=== PATIENT | female | born 1945 | race Caucasian/White ===

== ENCOUNTER 2021-09-22 19:29 | Inpatient (IN) | payer BC ==
[~2021-09-22] VITALS: Ht 142.2 cm; Wt 96.6 kg
[2021-09-22] MEDS: ENOXAPARIN 100 MG/ML SYR SUBQ SCH (01:20)
[2021-09-22 19:45] VITALS: BP 215/84
[2021-09-22] MEDS ORDERED: NACL 0.9% 1,000 ML IV ONE (19:45)
[2021-09-22] MEDS ORDERED: DILTIAZEM 25 MG/5 ML VIAL IVP ONE ×2 (19:45→20:50)
--- NOTE | 2021-09-22 19:45 | NUR ---
76 Y/O FEMALE BIBA, C/O CP X1HR PRIOR TO EMS ARRIVAL. PATIENT PRESENTS TO ED WITH SOB, CP, AND PAIN IN HER LEFT ARM. PT STATES SHE WENT FOR A WALK AND WHEN SHE CAME HOME SHE STARTED TO FEEL LIKE HER "HEART WAS POUNDING OUT OF HER CHEST." DENIES N/V/D; SKIN IS PINK/WARM/DRY; AAOX4 WITH EVEN AND STEADY GAIT; HR IRREGULAR; PT DENIES ANY FEVER OR COUGH AT THIS TIME; PATIENT STATES PAIN OF 9/10 BURNING PAIN AT THIS TIME; PATIENT POSITIONED FOR COMFORT; HOB ELEVATED; BEDRAILS UP X2; BED DOWN. ER MD MADE AWARE OF PT STATUS. EMS STATES DURING 2 MINUTE TRANSPORT PT HAD AFIB WITH MOMENTS OF WIDE QRS COMPLEXES, TACHYCARDIC, AND SYSTOLIC BP OVER 200. HX: SPINAL STYENOSIS, HTN ALL: LISINOPRIL AND "THREE OTHER HTN MEDICATIONS" MEDS: LOSARTAN, NORCO
--- NOTE | 2021-09-22 19:45 | NUR ---
PT TAKEN TO BED 10 VIA EMS DARRYL
[2021-09-22 20:47] LABS: ALBUMIN 3.2 g/dL (3.4-5.0); ANION GAP 8.2 (8-16); ASPARTATE AMINOTRANSFERASE 22 U/L (15-37); CARBON DIOXIDE 27.6 mmol/L (21-32); CHLORIDE 103 mmol/L (98-107); CREATININE 0.9 mg/dL (0.6-1.3); GLUCOSE 143 mg/dL (74-106); SODIUM SERUM 136 mmol/L (136-145); TOTAL BILIRUBIN 0.2 mg/dL (0.0-1.0); UREA NITROGEN, BLOOD 17 mg/dL (7-18)
[2021-09-22 20:48] LABS: POTASSIUM 2.8 mmol/L (3.5-5.1)
[2021-09-22 20:56] LABS: PHOSPHORUS 3.9 mg/dL (2.5-4.9); THYROID STIMULATING HORMONE 2.46 uIU/mL (0.34-3.74)
[2021-09-22] MEDS ORDERED: POTASSIUM CHLORIDE 10 MEQ TABER PO ONE ×2 (21:00→22:40)
[2021-09-22] MEDS ORDERED: ASPIRIN 325 MG TAB PO ONE (21:00)
[2021-09-22] MEDS ORDERED: DILTIAZEM 30 MG TAB PO ONE (21:05)
[2021-09-22] MEDS ORDERED: MORPHINE SULFATE 4 MG/ML SYR IVP ONE (21:05)
[2021-09-22] MEDS ORDERED: CALCIUM GLUC 1 GM/50 mL NS BAG 50 ML IV ONE (21:05)
[2021-09-22] MEDS ORDERED: HYDR-5191 PO (21:44)
[2021-09-22] MEDS ORDERED: ALBU0.0912 INH (21:44)
[2021-09-22] MEDS ORDERED: ASPI-1822 PO (21:44)
--- NOTE | 2021-09-22 21:49 | NUR ---
nelson/ebonie swabbed and walked to lab
[2021-09-22] MEDS ORDERED: FUROSEMIDE 40 MG/4 ML VIAL IVP ONE (21:50)
--- NOTE | 2021-09-22 21:50 | NUR ---
PT STATES THE "MEDICATION WE GAVE HER IS HELPING." BP AND PULSE HAVE DECREASED. PT IS UNCOMFORTABLE DUE TO HX OF SPINALSTENOSIS. PILLOWS AND BLANKETS USED WITH MINOR IMPROVEMENT.
[2021-09-22] MEDS ORDERED: DILTIAZEM 125 MG/25 ML VIAL IV ONE (22:14)
[2021-09-22] MEDS: DILTIAZEM 125 MG in DEXTROSE 5% 100 ML IV SCH (22:36)
[2021-09-22] MEDS ORDERED: ONDANSETRON 4 MG/2 ML VIAL IVP PRN (22:40)
[2021-09-22] MEDS ORDERED: ACETAMINOPHEN 325 MG TAB PO PRN (22:40)
--- NOTE | 2021-09-22 23:00 | NUR ---
PT STATES SHE IS INCONTINENT AND USES A DIAPER. SHE WAS CHANGED AND PURWICK PLACED.
--- NOTE | 2021-09-22 23:16 | NUR ---
REPLACED PT LINENES AND TRIED TO REPOSITION PT FOR COMFORT.
--- NOTE | 2021-09-22 23:30 | NUR ---
URINE COLLECTED AND WALKED TO LAB
--- NOTE | 2021-09-22 23:51 | NUR ---
Patient will be admitted to care of DR ETIENNE. Admited to ICU. Will go to room 2. Belongings list completed. Report to NORMAN NEVAREZ.
[2021-09-23] VITALS (24 sets, daily range): BP systolic 64–177; BP diastolic 28–101
--- NOTE | 2021-09-23 | NUR ---
PT TRANSFERRED TO ICU BED 2 FROM ED. RECEIVED BEDSIDE REPORT FROM ED NURSE, ASSUMED CARE. PT IN NO APPARENT ACUTE DISTRESS, AOX4 TALKING AND ANSWERING TO ALL MEDICAL HISTORY QUESTIONS. BREATHING AT RA O2 SAT 96%, EVEN UNLABORED BREATHING, CLEAR LUNG SOUNDS UPON AUSCULTATION. 20 G IN RIGHT HAND INFUSING CARDIZEM 15 MG/HR. PUREWICK IN PLACE. SKIN INTACT. PT EDUCATED ON HOW TO USE CALL LIGHT AND TV. ALL SAFETY MEASURES IN PLACE, WILL CONTINUE TO CLOSELY MONITOR AND FOLLOW POC.
[2021-09-23 00:08] LABS: BARBITURATE, URINE NEGATIVE ng/ml (NEG <=200); BENZODIAZEPINE, URINE NEGATIVE ng/mL (NEG <=200); CANNABINOID, URINE NEGATIVE ng/mL (NEG <=50); COCAINE, URINE NEGATIVE ng/mL (NEG <=300); OPIATE, URINE POSITIVE ng/mL (NEG <=2000); PHENCYCLIDINE SCREEN,URINE NEGATIVE ng/mL (NEG <=25)
--- NOTE | 2021-09-23 00:10 | NUR ---
CALLED DR ETIENNE TO REPORT PT WITH SEVERE BACK PAIN SHE RATES /. NEW ORDER RECEIVED AND CARRIED OUT.
[2021-09-23] MEDS ORDERED: HYDROcodone/APAP 10/325 MG 1 TAB TAB ONE (00:14)
[2021-09-23] MEDS: HYDROcodone/APAP 10/325 MG 1 TAB TAB PO PRN (00:21)
--- NOTE | 2021-09-23 00:30 | NUR ---
CALLED DR. ETIENNE TO REPORT PT WITH LEG CRAMPS AND SEVERE PAIN. NEW ORDERS RECEIVED FOR BACLOFEN AND BOLUS NS. ORDERS CARRIED OUT.
[2021-09-23] MEDS ORDERED: NACL 0.9% 500 ML IV ONE (00:50)
[2021-09-23] MEDS ORDERED: BACLOFEN 10 MG TAB ONE (00:52)
[2021-09-23] MEDS: BACLOFEN 10 MG TAB PO SCH ×3 (01:03→20:44)
[2021-09-23 01:12] LABS: BASOPHILS # (AUTO) 0.1 K/uL (0.00-0.22); BASOPHILS % (AUTO) 0.7 % (0.0-2.0); EOSINOPHILS # (AUTO) 0.2 K/uL (0-0.4); EOSINOPHILS % (AUTO) 1.3 % (0.0-4.0); HEMATOCRIT 34.7 % (36-48); HEMOGLOBIN 11.2 g/dL (12.0-16.0); LYMPHOCYTES # (AUTO) 3.8 K/uL (2.5-16.5); MEAN CORPUSCULAR HEMOGLOBIN 28 pg (27-31); MEAN CORPUSCULAR HGB CONC 32 g/dL (33-37); MEAN CORPUSCULAR VOLUME 87.8 fL (80-94); MONOCYTES # (AUTO) 0.7 K/uL (0.8-1.0); MONOCYTES % (AUTO) 4.5 % (1.7-9.3); NEUTROPHILS # (AUTO) 10.5 K/uL (1.8-7.7); NEUTROPHILS % (AUTO) 68.5 % (42.2-75.2); PLATELET COUNT (AUTO) 305 K/uL (140-450); RED BLOOD CELL COUNT(AUTO) 3.95 MIL/uL (4.20-5.40); RED CELL DISTRIBUTION WIDTH 14.1 % (11.6-13.7); WHITE BLOOD COUNT (AUTO) 15.3 K/uL (4.8-10.8)
[2021-09-23] MEDS ORDERED: MORPHINE SULFATE 2 MG/ML SYR ONE (03:23)
[2021-09-23] MEDS: MORPHINE SULFATE 2 MG/ML SYR IVP PRN ×7 (03:30→23:43)
[2021-09-23 05:16] LABS: ALBUMIN 3.2 g/dL (3.4-5.0); ANION GAP 9.9 (8-16); ASPARTATE AMINOTRANSFERASE 39 U/L (15-37); CARBON DIOXIDE 28.7 mmol/L (21-32); CHLORIDE 104 mmol/L (98-107); CREATININE 0.7 mg/dL (0.6-1.3); GLUCOSE 114 mg/dL (74-106); MAGNESIUM 1.9 mg/dL (1.8-2.4); PHOSPHORUS 4.2 mg/dL (2.5-4.9); POTASSIUM 3.6 mmol/L (3.5-5.1); SODIUM SERUM 139 mmol/L (136-145); TOTAL BILIRUBIN 0.3 mg/dL (0.0-1.0); UREA NITROGEN, BLOOD 14 mg/dL (7-18)
[2021-09-23 05:39] LABS: BASOPHILS # (AUTO) 0.1 K/uL (0.00-0.22); BASOPHILS % (AUTO) 0.8 % (0.0-2.0); EOSINOPHILS # (AUTO) 0.1 K/uL (0-0.4); EOSINOPHILS % (AUTO) 1.3 % (0.0-4.0); HEMATOCRIT 33.5 % (36-48); LYMPHOCYTES # (AUTO) 2.5 K/uL (2.5-16.5); LYMPHOCYTES % (AUTO) 23.8 % (20.5-51.1); MEAN CORPUSCULAR HEMOGLOBIN 29 pg (27-31); MEAN CORPUSCULAR HGB CONC 33 g/dL (33-37); MEAN CORPUSCULAR VOLUME 87.4 fL (80-94); MONOCYTES # (AUTO) 0.6 K/uL (0.8-1.0); MONOCYTES % (AUTO) 5.9 % (1.7-9.3); NEUTROPHILS # (AUTO) 7.1 K/uL (1.8-7.7); NEUTROPHILS % (AUTO) 68.2 % (42.2-75.2); PLATELET COUNT (AUTO) 303 K/uL (140-450); RED BLOOD CELL COUNT(AUTO) 3.83 MIL/uL (4.20-5.40); RED CELL DISTRIBUTION WIDTH 13.9 % (11.6-13.7); WHITE BLOOD COUNT (AUTO) 10.4 K/uL (4.8-10.8)
--- NOTE | 2021-09-23 07:15 | NUR ---
RECEIVED BEDSIDE REPORT FROM ROQUE GARCIA RN FOR CONTINUITY OF CARE. PT LYING SUPINE IN THE BED, AAOX4, ABLE TO MAKE NEEDS KNOWN. ON ROOM AIR SPO2 97%. AFIB ON THE MONITOR. HR 84, BP 138/70. BOWEL SOUNDS ACTIVE. CONTINENT OF BOWEL. INCONTINENT OF BLADDER, PURE WICK TO CONTINUOUS SUCTION. PT LETHARGIC. SKIN INTACT. 22G IV TO R HAND. PT COMPLAINS OF PAIN, BUT REFUSES PRN NORCO AT THIS TIME, WILL REASSESS. SAFETY PRECAUTIONS MET. STANDARD PRECAUTIONS IN PLACE. INITIAL ASSESSMENT COMPLETE, WILL CONTINUE TO CLOSELY MONITOR.
--- NOTE | 2021-09-23 08:35 | NUR ---
DOUBLER HELPER CALLED TO BEDSIDE PATIENT PRESENTING WITH INCREASED SOB LABORED WITH RR AT 24 BPM SATURATION 94% ON ROOM AIR BREATH SOUNDS DIMINISHED LEFT SIDE DIFFUSED RALES RIGHT SIDE DOUBLER HELPER RECOMMENDATION: [facility]N THERAPY DUONEB Q4PRN FOR SOB/WHEEZE; SATURATION GREATER OR EQUAL TO 92% Addendum: 09/23/21 at 0930 by Romulo Yarbrough RT REVIEWED CXR; LABS (CHEMISTRY/HEMATOLOGY)
[2021-09-23] MEDS ORDERED: ALBUTEROL SULFATE/IPRATROPIU 3 ML SOL IH PRN (08:40)
--- NOTE | 2021-09-23 08:45 | NUR ---
PT SON, VALENTIN, CALLED. PT SPOKE WITH SON WITH UNIT PT PHONE. SPOKE WITH VALENTIN, UPDATED REGARDING PT CONDITION, ALL QUESTIONS ANSWERED AT THIS TIME. HE REQUESTED TO SPEAK W WHEN THEY ARRIVE.
--- NOTE | 2021-09-23 08:46 | NUR ---
PLACED ON HUMIDIFIED SUPPLEMENTAL OXYGEN AT 2 LPM VIA NC FOR CARDIAC SUPPORT; MAINTAIN OXYGEN SATURATION EQUAL/GREATER THAN 92% JOI/RN NOTIFIED
--- NOTE | 2021-09-23 08:55 | NUR ---
PT DAUGHTER, CALLUM CALLED. PT RELEASED INFORMATION TO CALLUM. UPDATED REGARDING PT CONDITION, ALL QUESTIONS ANSWERED AT THIS TIME.
[2021-09-23] MEDS ORDERED: LOVENOX 1MG/KG Q12H SUBQ SCH (09:00)
--- NOTE | 2021-09-23 09:00 | NUR ---
PT SON, NAVEED CALLED. UPDATED REGARDING PT CONDITION, ALL QUESTIONS ANSWERED AT THIS TIME.
--- NOTE | 2021-09-23 09:15 | NUR ---
ECHOCARDIOGRAM AT BEDSIDE
[2021-09-23] MEDS: ASPIRIN 81 MG TAB.CHEW PO SCH (10:36)
--- NOTE | 2021-09-23 11:00 | NUR ---
PT SON AT BEDSIDE.
--- NOTE | 2021-09-23 11:20 | NUR ---
SEEN AND EXAMINED BY DR ETIENNE.
--- NOTE | 2021-09-23 11:32 | NUR ---
PT TALKS WITH PT SON, NAVEED AT BEDSIDE, AND VALENTIN ON THE PHONE.
[2021-09-23] MEDS ORDERED: DILTIAZEM 125 MG/25 ML VIAL IV ONE (16:22)
[2021-09-23] MEDS: DILTIAZEM 125 MG in DEXTROSE 5% 100 ML IV SCH (16:41)
[2021-09-23] MEDS: FUROSEMIDE 40 MG/4 ML VIAL IVP SCH (16:46)
--- NOTE | 2021-09-23 19:15 | NUR ---
ENDORSED BEDSIDE REPORT TO ROQUE GARCIA RN FOR CONTINUITY OF CARE
--- NOTE | 2021-09-23 19:30 | NUR ---
RECEIVED BEDSIDE REPORT FROM DAY SHIFT NURSE, ASSUMED CARE. PT IN NO APPARENT ACUTE DISTRESS, AOX4 TALKING AND ANSWERING TO ALL QUESTIONS. BREATHING AT RA O2 SAT 92%, EVEN UNLABORED BREATHING, CLEAR LUNG SOUNDS UPON AUSCULTATION. 20 G IN RIGHT HAND INFUSING CARDIZEM 5 MG/HR. PUREWICK IN PLACE. SKIN INTACT. ALL SAFETY MEASURES IN PLACE, WILL CONTINUE TO CLOSELY MONITOR AND FOLLOW POC.
[2021-09-23] MEDS ORDERED: METOPROLOL 5 MG/5 ML VIAL IVP PRN (22:30)
--- NOTE | 2021-09-23 22:33 | NUR ---
CALLED RUBBER MIXER DR. PINTO TO REPORT PT CONVERTED FROM A-FIB TO SR AT 2129. NEW ORDERS RECEIVED TO STOP CARDIZEM DRIP AND SWITCH TO SCHEDULED PO MEDICATIONS. ORDERS CARRIED OUT.
[2021-09-23] MEDS: ENOXAPARIN 100 MG/ML SYR SUBQ SCH (23:46)
[2021-09-24] VITALS (17 sets, daily range): BP systolic 76–186; BP diastolic 49–81
--- NOTE | 2021-09-24 02:19 | NUR ---
PT IN BED RESTING COMFORTABLY Addendum: 09/24/21 at 0309 by Ирина Ponce RN PT SLEEPING WITH EYES CLOSED COMFORTABLY IN BED IN NO APPARENT ACUTE DISTRESS. BREATHING AT RA O2 SAT 96%. ALL SAFETY MEASURES IN PLACE, WILL CONTINUE TO CLOSELY MONITOR AND FOLLOW POC.
[2021-09-24] MEDS: MORPHINE SULFATE 2 MG/ML SYR IVP PRN ×5 (02:43→20:06)
--- NOTE | 2021-09-24 03:00 | NUR ---
MORNING AND ORAL CARE PROVIDED, PT TOLERATED WELL. PT BREATHING AT RA O2 SAT 93%. MORPHINE ADMINISTERED FOR BACK PAIN SHE RATES 10/10. ALL SAFETY MEASURES IN PLACE, WILL CONTINUE TO CLOSELY MONITOR AND FOLLOW POC.
--- NOTE | 2021-09-24 06:00 | NUR ---
PT SLEEPING COMFORTABLY IN BED WITH EYES CLOSED. BREATHING AT RA O2 SAT 98%. ALL SAFETY MEASURES IN PLACE. WILL CONTINUE TO CLOSELY MONITOR AND FOLLOW POC.
[2021-09-24 06:02] LABS: BASOPHILS # (AUTO) 0.1 K/uL (0.00-0.22); BASOPHILS % (AUTO) 0.8 % (0.0-2.0); EOSINOPHILS # (AUTO) 0.2 K/uL (0-0.4); EOSINOPHILS % (AUTO) 1.9 % (0.0-4.0); HEMATOCRIT 34.6 % (36-48); HEMOGLOBIN 11.2 g/dL (12.0-16.0); LYMPHOCYTES # (AUTO) 2.5 K/uL (2.5-16.5); LYMPHOCYTES % (AUTO) 19.9 % (20.5-51.1); MEAN CORPUSCULAR HEMOGLOBIN 28 pg (27-31); MEAN CORPUSCULAR HGB CONC 33 g/dL (33-37); MEAN CORPUSCULAR VOLUME 87.1 fL (80-94); MONOCYTES # (AUTO) 0.6 K/uL (0.8-1.0); MONOCYTES % (AUTO) 4.8 % (1.7-9.3); NEUTROPHILS # (AUTO) 9.1 K/uL (1.8-7.7); NEUTROPHILS % (AUTO) 72.6 % (42.2-75.2); PLATELET COUNT (AUTO) 311 K/uL (140-450); RED BLOOD CELL COUNT(AUTO) 3.97 MIL/uL (4.20-5.40); RED CELL DISTRIBUTION WIDTH 14.2 % (11.6-13.7); WHITE BLOOD COUNT (AUTO) 12.6 K/uL (4.8-10.8)
[2021-09-24 06:16] LABS: ANION GAP 11.2 (8-16); CARBON DIOXIDE 27.5 mmol/L (21-32); CHLORIDE 101 mmol/L (98-107); CREATININE 0.8 mg/dL (0.6-1.3); GLUCOSE 111 mg/dL (74-106); POTASSIUM 3.7 mmol/L (3.5-5.1); SODIUM SERUM 136 mmol/L (136-145); UREA NITROGEN, BLOOD 19 mg/dL (7-18)
[2021-09-24 06:21] LABS: MAGNESIUM 1.9 mg/dL (1.8-2.4); PHOSPHORUS 4.2 mg/dL (2.5-4.9)
--- NOTE | 2021-09-24 07:15 | NUR ---
REPORT RECEIVED FROM NORMAN NEVAREZ.
--- NOTE | 2021-09-24 08:00 | NUR ---
PATIENT AWAKE AND ALERT. COMPLAINING OF PAIN IN BACK AND KNEE. MORPHINE GIVEN BY CHARGE ACCOUNT CLERK RN AT 0700. HEART TONES REGULAR. MONITOR WITH SR RATE OF 80'S. ON RA WITH SA02 98%. POSTERIOR LUNG SOUNDS CLEAR BILATERALLY. ACTIVE BOWEL SOUNDS IN ALL 4 QUAD. ABDOMEN SOFT/ROUND. TOLERATING CARDIAC DIET. PURE WICK IN PLACE WITH CLEAR YELLOW URINE. SL IN RIGHT WRIST. FLUSHES WITHOUT DIFFICULTY.
[2021-09-24] MEDS: FUROSEMIDE 40 MG/4 ML VIAL IVP SCH (08:14)
[2021-09-24] MEDS: ASPIRIN 81 MG TAB.CHEW PO SCH (08:14)
[2021-09-24] MEDS: METOPROLOL 25 MG TAB PO SCH ×2 (08:16→22:20)
[2021-09-24] MEDS: BACLOFEN 10 MG TAB PO SCH ×2 (08:17→22:19)
[2021-09-24] MEDS: HYDROcodone/APAP 10/325 MG 1 TAB TAB PO PRN (08:31)
[2021-09-24] MEDS ORDERED: MAG SULF 2000 MG/WATER PREMIX 50 ML IV PRN (08:45)
[2021-09-24] MEDS ORDERED: POTASSIUM CHLORIDE 10 MEQ TABER PO PRN (08:45)
--- NOTE | 2021-09-24 11:30 | NUR ---
PATIENT COMPLAINED OF PAIN. RATING 10. MORPHINE 2MG IV GIVEN. AT BEDSIDE.
--- NOTE | 2021-09-24 12:48 | NUR ---
DC PLANN[age] YRS OLD FEMALE PATIENT WAS ADMITTED FROM HOME WITH A DX OF A-FIB WITH RVR. PATIENT HAS A HX OF A-FIB, HTN, CHRONIC BACK PAIN SPINAL STENOSIS. ADMITTED TO ICU FOR CARDIZEM DRIP. CXR SHOWED CARDIOMEGALY AND PULMONARY EDEMA COMPATIBLE WITH CHF. RAPID COVID TEST NEGATIVE. ADMINISTERED IV LASIX, IV MORPHINE FOR CHEST PAIN. CONSULTED WITH BUYER LIAISON. DC PLAN TO GO HOME WHEN STABLE CM TO FOLLOW.
--- NOTE | 2021-09-24 18:30 | NUR ---
REPORT CALLED TO NORMAN YEBOAH. [facility]
--- NOTE | 2021-09-24 18:56 | NUR ---
RECEIVED REPORT FOR PATIENT FROM SEPTEMBER RN. PT TRANSPORTED TO [facility]. NO S/S OF DISTRESS. [id number] GATHERED FOR [employer] APPLICATION. WILL ENDORSE TO RUSSET REPAIRER
--- NOTE | 2021-09-24 19:39 | NUR ---
ENDORSED PT TO STUDENT DEVELOPMENT DEAN NURSE
--- NOTE | 2021-09-24 20:00 | NUR ---
GET REPORT FROM MORNING NURSE , PATIENT IS LYING ON BED , VITAL SIGN WITHIN THE RANGE , ALL DUE MEDS ARE GIVEN PER DR ORDER, CALL LIGHT IS WITHIN THE REACH WILL CONTINUE TO MONITOR
[2021-09-24] MEDS: APIXABAN 2.5 MG TAB PO SCH (22:22)
[2021-09-25] VITALS (7 sets, daily range): BP systolic 144–156; BP diastolic 45–75
--- NOTE | 2021-09-25 00:30 | NUR ---
PATIENT IS LYING ON BED , VITAL SIGN IS WITHIN THE RANGE,ALL DUE MEDS ARE GIVEN PER DR ORDER,CALL LIGHT IS WITHIN THE REACH , WILL CONTINUE TO MONITOR
[2021-09-25] MEDS: MORPHINE SULFATE 2 MG/ML SYR IVP PRN ×3 (02:42→08:34)
--- NOTE | 2021-09-25 02:43 | NUR ---
PATIENT COMPLAIN OF 8/10 BACK PAIN, MORPHINE SULFATE GIVEN.NO SIGNS OF DISTRESS NOTED.
--- NOTE | 2021-09-25 03:30 | NUR ---
PATIENT ASLEEP, BREATHING EVEN AND UNLABORED,NO DISTRESS NOTED.
--- NOTE | 2021-09-25 05:00 | NUR ---
PATIENT COMPLAINED OF 8/10 BACK PAIN. MORPHINE SULFATE GIVEN IVP
--- NOTE | 2021-09-25 06:00 | NUR ---
PATIENT PAIN IS RELIEVED, SLEEPING AT THIS TIME, BREATHING EVEN AND UNLABORED , NO DISTRESS NOTED.
[2021-09-25 06:45] LABS: BASOPHILS # (AUTO) 0.1 K/uL (0.00-0.22); BASOPHILS % (AUTO) 0.7 % (0.0-2.0); EOSINOPHILS # (AUTO) 0.3 K/uL (0-0.4); EOSINOPHILS % (AUTO) 2.9 % (0.0-4.0); HEMATOCRIT 33.8 % (36-48); HEMOGLOBIN 10.9 g/dL (12.0-16.0); LYMPHOCYTES % (AUTO) 17.7 % (20.5-51.1); MEAN CORPUSCULAR HEMOGLOBIN 28 pg (27-31); MEAN CORPUSCULAR HGB CONC 32 g/dL (33-37); MEAN CORPUSCULAR VOLUME 87.6 fL (80-94); MONOCYTES # (AUTO) 0.6 K/uL (0.8-1.0); NEUTROPHILS # (AUTO) 8.5 K/uL (1.8-7.7); NEUTROPHILS % (AUTO) 73.7 % (42.2-75.2); PLATELET COUNT (AUTO) 310 K/uL (140-450); RED BLOOD CELL COUNT(AUTO) 3.86 MIL/uL (4.20-5.40); WHITE BLOOD COUNT (AUTO) 11.5 K/uL (4.8-10.8)
[2021-09-25 07:12] LABS: ANION GAP 7.4 (8-16); CARBON DIOXIDE 31.9 mmol/L (21-32); CHLORIDE 103 mmol/L (98-107); CREATININE 0.6 mg/dL (0.6-1.3); GLUCOSE 96 mg/dL (74-106); POTASSIUM 4.3 mmol/L (3.5-5.1); SODIUM SERUM 138 mmol/L (136-145); UREA NITROGEN, BLOOD 17 mg/dL (7-18)
--- NOTE | 2021-09-25 07:30 | NUR ---
RECEIVED BEDSIDE REPORT FROM AUTOMOBILE BODY CUSTOMIZER NURSE FOR CONTINUITY OF CARE. PT IS AWAKE AND ALERT. A&OX4. ON RA WITH BREATHING UNLABORED. INCONTINENT OF THE BOWEL AND BLADDER. SKIN IS WARM, DRY, AND INTACT. IV IS IN THE RIGHT WRIST 20 GAUGE SALINE LOCKED. PT IS STABLE. PLAN OF CARE DISCUSSED.
[2021-09-25] MEDS: BACLOFEN 10 MG TAB PO SCH (08:28)
[2021-09-25] MEDS: METOPROLOL 25 MG TAB PO SCH (08:28)
[2021-09-25] MEDS: APIXABAN 2.5 MG TAB PO SCH (08:29)
--- NOTE | 2021-09-25 08:34 | NUR ---
PT IS STATING SHE HAS PAIN AT A SCALE OF 8/10 IN THE LOWER BACK AND ALL OVER BODY. PT WAS GIVEN MORPHINE FOR PAIN. WILL CONTINUE TO MONITOR PAIN.
--- NOTE | 2021-09-25 08:48 | NUR ---
PATIENT HAS BEEN SCREENED AND CATEGORIZED MODERATE NUTRITION RISK. PATIENT WILL BE SEEN WITHIN 3-5 DAYS OF ADMISSION. LISANDRO JARAMILLO RD
[2021-09-25] MEDS ORDERED: ASPIRIN 81 MG TAB.CHEW PO SCH (09:00)
[2021-09-25] MEDS ORDERED: FUROSEMIDE 40 MG TAB PO SCH (09:00)
[2021-09-25] MEDS ORDERED: LOSARTAN 25 MG TAB PO SCH (09:00)
[2021-09-25] MEDS ORDERED: APIX2.5 PO (10:22)
[2021-09-25] MEDS ORDERED: NORC10 PO (10:22)
[2021-09-25] MEDS ORDERED: ALBU3SOL83 IH (10:22)
[2021-09-25] MEDS ORDERED: BACL10TA4 PO (10:22)
[2021-09-25] MEDS ORDERED: ACET-1182 PO (10:22)
[2021-09-25] MEDS ORDERED: FURO40TA9 PO (10:22)
[2021-09-25] MEDS ORDERED: LOSA25TA1 PO (10:22)
[2021-09-25] MEDS ORDERED: METO25TA PO (10:22)
--- NOTE | 2021-09-25 11:00 | NUR ---
PT IS AWAKE AND SPEAKING APPROPRIATELY. DENIES PAIN OR SOB. PT APPEARS TO BE STABLE AT THIS TIME. WATCHING TV IN SEMI FOWLERS POSITION. WILL MONITOR.
[2021-09-25] MEDS: HYDROcodone/APAP 10/325 MG 1 TAB TAB PO PRN (12:57)
--- NOTE | 2021-09-25 12:57 | NUR ---
PT STATES SHE HAS PAIN AT A SCALE OF 7/10 IN THE BACK. PT WAS GIVEN NORCO FOR PAIN. WILL MONITOR PAIN.
--- NOTE | 2021-09-25 13:28 | NUR ---
DISCHARGE INSTRUCTIONS PROVIDED AND PT VERBALIZED UNDERSTANDING. VS ARE STABLE. PT IS STABLE. NO DISTRESS NOTED ON RA. SKIN IS INTACT. PT IS AMBULTAORY WITH ASSITIVE DEVICE. NONE AT THE BEDSIDE. WILL USE WHEELCHAIR TO BRING PT TO CAR WHERE SISTER WILL PICK HER UP. TELE BOX REMOVED BY PT. IV WAS REMOVED BY RN AND ID BANDS. BLEEDING CONTROLLED. WILL WAIT FOR FAMILY TO COMPUTER HARDWARE ENGINEER.
--- NOTE | 2021-09-25 14:15 | NUR ---
PT WAS DISCHARGE FROM THE HOSPITAL VIA WHEELCHAIR. SISTER AT THE BEDSIDE TO PLAYER MANAGER PATIENT. PT WAS CHANGED INTO OWN CLOTHES BEFORE BEING DISCHARGED. PT IS STABLE.
== END 2021-09-25 14:15 | disposition home or self-care (01) | DRG 280 ==
LOC: MED 19:29 → MTU 21:37 → MIC 23:06 → MTU 09-24 18:30
PROVIDERS: ADMIT Student in an Organized Health Care Education/Training Program; ATTEND Student in an Organized Health Care Education/Training Program
DX: I48.0 Paroxysmal atrial fibrillation (principal); I21.A1 Myocardial infarction type 2; I50.33 Acute on chronic diastolic (congestive) heart failure; E44.1 Mild protein-calorie malnutrition; Z68.42 Body mass index [BMI] 45.0-49.9, adult; I11.0 Hypertensive heart disease with heart failure; E66.01 Morbid (severe) obesity due to excess calories; E11.9 Type 2 diabetes mellitus without complications; E87.6 Hypokalemia; D64.9 Anemia, unspecified; Z20.822 Contact with and (suspected) exposure to COVID-19; G89.29 Other chronic pain; E83.51 Hypocalcemia; M19.90 Unspecified osteoarthritis, unspecified site; M48.00 Spinal stenosis, site unspecified; Z79.82 Long term (current) use of aspirin; Z86.010 Personal history of colon polyps
CPT/HCPCS: 36415; 71045; 71101; 80048; 80053; 80305; 83036; 83735; 83880; 84100; 84443; 84484; 85025; 87081; 93005; 94640; 96361; 96374; 96375; 96376; 99291; J0610; J1650; J1940; J2270; J3490; J7030; Q0092

== ENCOUNTER 2023-01-11 21:07 | Inpatient (IN) | payer BC, OTHER ==
[~2023-01-11] VITALS: Ht 152.4 cm; Wt 100.2 kg
[~2023-01-11 21:07] MED LIST: ACET-1182 PO; ALBU0.0912 INH; ALBU3SOL83 IH; APIX2.5 PO; ASPI-1822 PO; BACL10TA4 PO; FURO40TA9 PO; HYDR-5191 PO; LOSA25TA1 PO; METO25TA PO; NORC10 PO
--- NOTE | 2023-01-11 21:07 | NUR ---
PT BIBA TO BED 10
[2023-01-11 21:10] VITALS: BP 197/92; PULSE 159; RESP 12; TEMP 98.1; O2SAT 95
[2023-01-11] MEDS ORDERED: DILTIAZEM 125 MG in DEXTROSE 5% 100 ML IV ONE (21:15)
--- NOTE | 2023-01-11 21:17 | NUR ---
Patient being evaluated by physician at bedside.
[2023-01-11] MEDS ORDERED: DILTIAZEM 125 MG/25 ML VIAL IV ONE (21:20)
[2023-01-11] MEDS ORDERED: MORPHINE SULFATE 4 MG/ML SYR IVP ONE (21:25)
[2023-01-11] MEDS ORDERED: ASPIRIN 325 MG TAB PO ONE (21:25)
--- NOTE | 2023-01-11 21:28 | NUR ---
LABS COLLECTED AND SENT TO LAB. 2ND IV EST R AC 20G
[2023-01-11 21:37] LABS: BASOPHILS # (AUTO) 0.1 K/uL (0.00-0.22); BASOPHILS % (AUTO) 0.8 % (0.0-2.0); EOSINOPHILS # (AUTO) 0.2 K/uL (0-0.4); EOSINOPHILS % (AUTO) 1.8 % (0.0-4.0); HEMATOCRIT 41.4 % (36-48); HEMOGLOBIN 13.6 g/dL (12.0-16.0); LYMPHOCYTES # (AUTO) 3.8 K/uL (2.5-16.5); LYMPHOCYTES % (AUTO) 28.1 % (20.5-51.1); MEAN CORPUSCULAR HEMOGLOBIN 29 pg (27-31); MEAN CORPUSCULAR HGB CONC 33 g/dL (33-37); MEAN CORPUSCULAR VOLUME 86.9 fL (80-94); MONOCYTES # (AUTO) 0.7 K/uL (0.8-1.0); NEUTROPHILS # (AUTO) 8.6 K/uL (1.8-7.7); NEUTROPHILS % (AUTO) 64.3 % (42.2-75.2); PLATELET COUNT (AUTO) 257 K/uL (140-450); RED BLOOD CELL COUNT(AUTO) 4.77 MIL/uL (4.20-5.40); RED CELL DISTRIBUTION WIDTH 14.1 % (11.6-13.7); WHITE BLOOD COUNT (AUTO) 13.4 K/uL (4.8-10.8)
--- NOTE | 2023-01-11 21:37 | NUR ---
Pt refused aspirin as per pt, took 4 baby aspirin at home. ERMD was made aware.
--- NOTE | 2023-01-11 21:45 | NUR ---
X-Ray at bedside.
[2023-01-11 21:50] LABS: ALBUMIN 3.8 g/dL (3.4-5.0); ANION GAP 14.5 (8-16); ASPARTATE AMINOTRANSFERASE 35 U/L (15-37); CARBON DIOXIDE 26.8 mmol/L (21-32); CHLORIDE 99 mmol/L (98-107); CREATININE 0.9 mg/dL (0.6-1.3); GLUCOSE 134 mg/dL (74-106); POTASSIUM 3.3 mmol/L (3.5-5.1); SODIUM SERUM 137 mmol/L (136-145); TOTAL BILIRUBIN 0.3 mg/dL (0.0-1.0); UREA NITROGEN, BLOOD 17 mg/dL (7-18)
--- NOTE | 2023-01-11 21:57 | NUR ---
PT RESTING ON BED. A/OX4. NOT IN DISTRESS. CHEST RISE AND FALL SYMMETRICAL. ON MONITOR. PLACED ON MODERATE HIGH BACK REST. ORIENTED COUNTER TOP MAKER LIGHT AND WITHIN REACH. BED LOCKED IN LOWEST POSITION. SIDERAILS X2 FOR SAFETY. WITH SON AT BEDSIDE
[2023-01-11] MEDS ORDERED: ENOXAPARIN 100 MG/ML SYR SUBQ ONE (22:05)
[2023-01-11] MEDS ORDERED: MORPHINE SULFATE 2 MG/ML SYR IVP PRN (23:10)
[2023-01-11] MEDS ORDERED: DILTIAZEM 125 MG in DEXTROSE 5% 100 ML IV SCH (23:10)
[2023-01-12] VITALS (26 sets, daily range): BP systolic 101–166; BP diastolic 61–95; PULSE 69–112; RESP 14–25; TEMP 96–97.6; O2SAT 89–96
--- NOTE | 2023-01-12 00:20 | NUR ---
Patient will be admitted to care of Dr. Kwok. Admited to ICU. Will go to room 2. Belongings list completed. Report to September
[2023-01-12] MEDS ORDERED: HYDROcodone/APAP 10/325 MG 1 TAB TAB PO PRN (00:50)
[2023-01-12] MEDS ORDERED: POTASSIUM CHLORIDE 10 MEQ TABER PO PRN (00:55)
[2023-01-12] MEDS ORDERED: MAGNESIUM OXIDE 400 MG TAB PO PRN (00:55)
[2023-01-12] MEDS ORDERED: MORPHINE SULFATE 2 MG/ML SYR ONE (01:05)
[2023-01-12] MEDS: MORPHINE SULFATE 2 MG/ML SYR IVP PRN ×4 (01:22→19:40)
--- NOTE | 2023-01-12 02:00 | NUR ---
Admitted this 80 year old female from ED with C/C of Chest Pain & Afib with RVR. On Cardizem Drip to keep HR 60 to 90 bpm. A. Fib on the scope in the 70 to 100 @ this time. pt. c/o chronic lower back and hip pain; Dr. Kwok made with orders for Morphine and [place] noted and carried out. Cardiac and resp. monitoring cont. Purewic applied for incontinence. Repositioned for comfort. Needs met.
[2023-01-12 05:10] LABS: BASOPHILS # (AUTO) 0.1 K/uL (0.00-0.22); BASOPHILS % (AUTO) 0.9 % (0.0-2.0); EOSINOPHILS # (AUTO) 0.1 K/uL (0-0.4); EOSINOPHILS % (AUTO) 1.5 % (0.0-4.0); HEMOGLOBIN 12.5 g/dL (12.0-16.0); LYMPHOCYTES # (AUTO) 2.8 K/uL (2.5-16.5); LYMPHOCYTES % (AUTO) 30.2 % (20.5-51.1); MEAN CORPUSCULAR HEMOGLOBIN 29 pg (27-31); MEAN CORPUSCULAR HGB CONC 33 g/dL (33-37); MEAN CORPUSCULAR VOLUME 87.5 fL (80-94); MONOCYTES # (AUTO) 0.6 K/uL (0.8-1.0); MONOCYTES % (AUTO) 6.1 % (1.7-9.3); NEUTROPHILS # (AUTO) 5.6 K/uL (1.8-7.7); NEUTROPHILS % (AUTO) 61.3 % (42.2-75.2); PLATELET COUNT (AUTO) 237 K/uL (140-450); RED BLOOD CELL COUNT(AUTO) 4.34 MIL/uL (4.20-5.40); WHITE BLOOD COUNT (AUTO) 9.2 K/uL (4.8-10.8)
[2023-01-12 06:19] LABS: MAGNESIUM 1.9 mg/dL (1.8-2.4); PHOSPHORUS 4.2 mg/dL (2.5-4.9)
[2023-01-12 06:38] LABS: PROTHROMBIN TIME 11.9 secs (10.8-13.4)
--- NOTE | 2023-01-12 06:45 | NUR ---
Cardizem titrated to keep HR 60 to 90 mmHg; currently 5 mg/hr. Cardiac and resp. monitoring cont. Given Morphine and [place] for chronic lower back pain with relief; pt. able to sleep after. Assisted with needs prn. Repositioned.
--- NOTE | 2023-01-12 07:00 | NUR ---
RECIEVED REPOSRT FROM SEPTEMBER ROUGH RICE GRADERGELATIN POWDER MIXER PT ADMITTED FOR ATRIAL FIB AND CHEST PAIN. PT V/S 96.0 HR 87 AFIB RHTYTHYM 17 RR, 92% ROOM AIN AND BP 141/72 PT IS ALERT AND ORIENTED X 4 ABLE TO MOVE ALL EXT UPPER EXT IS MODERATE STRENGTH LOWER EXT IS WEAK PT HAS NO C/O PAIN AND SOB PT HAS NOTED TO HAVE BILATER LEG SWOLLEN NO PITTING EDEMA PT ABDOMEN IS SOFT DISTENDED NON TENDER PT HAS BM YESTERDAY PT HAS PURWICK FOR URINARY INCONTINENCE PT HAS LEFT AC PERIPHERAL WITH DIALTIZAM DRIP AT 5MG/HR PT HAS OLD SCAR IN THE RIGHT KNEE S/P KNEE REPLACEMENT PT C/O OF 10/10 GENERALIZED PT PER PT HAS CHRONIC PAIN AND TAKEN NORCO AT HOME. SIMRAN CHARGE WILL GIVE PAIN MEDS. KEPT PT CALL LIGHT WITHIN REACH BED IS LOCKED AND LOW POSITION WILL CONTINUE TO ,MONITOR.
--- NOTE | 2023-01-12 07:00 | NUR ---
DR. KIM CAME IN AND DID CHART AND LAB REVIEW NEW ORDER GIVEN LASIX 2MG IV DAILY
[2023-01-12 07:17] LABS: ALBUMIN 3.3 g/dL (3.4-5.0); ANION GAP 15.5 (8-16); ASPARTATE AMINOTRANSFERASE 225 U/L (15-37); CARBON DIOXIDE 24.6 mmol/L (21-32); CHLORIDE 104 mmol/L (98-107); CREATININE 0.7 mg/dL (0.6-1.3); GLUCOSE 110 mg/dL (74-106); POTASSIUM 4.1 mmol/L (3.5-5.1); SODIUM SERUM 140 mmol/L (136-145); TOTAL BILIRUBIN 0.4 mg/dL (0.0-1.0); UREA NITROGEN, BLOOD 15 mg/dL (7-18)
[2023-01-12] MEDS ORDERED: DILTIAZEM 125 MG/25 ML VIAL IV ONE (07:31)
--- NOTE | 2023-01-12 07:54 | NUR ---
DR. MOONEY MADE AWARE REAGDING PT 3TROPONIN RESULT IS 222 TREND UP PT HAS NO CHEST PAIN Addendum: 01/12/23 at 1207 by ISMAEL THACKER RN 09 DR. MOONEY CALLED BACK NO NEW ORDER GIVEN
--- NOTE | 2023-01-12 08:30 | NUR ---
DR. CORONADO CAME IN AND ASSESS PT CHART AND LABS REVIEW DONE PT HAS BILATERAL LEG SWOLLEN AND LEFT LOWER EXT IS PAINFUL NEW ORDER FOR US VENOUS DUPLEX BILA LOWER EXT STAT AND PT IS IN CHRONIC PAIN PT HAS NORCO AT HOME ORDER NORCO Q8H GIVEN
[2023-01-12] MEDS ORDERED: LOSARTAN 25 MG TAB PO SCH (09:00)
[2023-01-12] MEDS ORDERED: ASPIRIN 81 MG TAB.CHEW PO SCH (09:00)
--- NOTE | 2023-01-12 09:58 | NUR ---
PATIENT HAS BEEN SCREENED AND CATEGORIZED MODERATE NUTRITION RISK. PATIENT WILL BE SEEN WITHIN 3-5 DAYS OF ADMISSION. 01/11/23-01/16/[address]
[2023-01-12] MEDS: FUROSEMIDE 20 MG/2 ML VIAL IVP SCH (10:00)
[2023-01-12] MEDS: BACLOFEN 10 MG TAB PO SCH ×2 (10:00→20:03)
[2023-01-12] MEDS ORDERED: CLINICAL MONITORING MC PRN (10:40)
--- NOTE | 2023-01-12 11:41 | NUR ---
DR. CAST NOTIFIED REGARDING PT US VENOUS MELI LOWER EXT RESULT NO NEW ORDER CONTINUE XARELTO
[2023-01-12] MEDS: RIVAROXABAN 10 MG TAB PO SCH (11:49)
--- NOTE | 2023-01-12 12:04 | NUR ---
01/12/23 RD INITIAL ASSESSMENT COMPLETED. PLEASE REFER TO NUTRITION ASSESSMENT UNDER CARE ACTIVITY FOR ESTIMATED NUTRITIONAL NEEDS. 1. CONTINUE CARDIAC DIET MEDICALLY TOLERATED. 2. MONITOR NUTRITION-RELATED LAB VALUES 3. RD TO FOLLOW-UP 3-5 DAYS, MODERATE RISK. REVIEWED BY FERNANDA TAYLOR RD
[2023-01-12] MEDS: HYDROcodone/APAP 10/325 MG 1 TAB TAB PO SCH ×2 (13:00→22:02)
--- NOTE | 2023-01-12 14:52 | NUR ---
DR. CORONADO CALLED FOR PT C/O OF SEVERE CRAMPING BILATERAL LEGS PER PT STATED EVERY [address] CORONADO AWARE OF K LEEVL AND MAG LEVEL TO DAY AND ORDER TO GIVE THE PRN MAG OXIDE TAB ONCE TODAY.
[2023-01-12] MEDS ORDERED: DILTIAZEM 60 MG TAB PO SCH (16:30)
--- NOTE | 2023-01-12 17:25 | NUR ---
CALLED DR. MOONEY TO MADE AWARE PT HAS 2 EPISODE OF HYPERTENSION SBP IN 160S TWICE AND DBP IN 100S NO C/O OF CHEST PAIN PT WAS IN PAIN REPOSITION AND PROVIDE RELAXATION TECHNIQUE PT ABLE TO REST. AWAITING CALL BACK FOR ORDER.
--- NOTE | 2023-01-12 19:36 | NUR ---
ENDORSED PT TO SEPTEMBER RN SBAR FOR CONTINUITY OF CARE ALL QUESTIONS ANSWERED.
[2023-01-12] MEDS: DILTIAZEM 60 MG TAB PO SCH (20:04)
[2023-01-13] VITALS (18 sets, daily range): BP systolic 107–145; BP diastolic 37–88; PULSE 66–116; RESP 14–24; TEMP 96.7–98.2; O2SAT 88–95
[2023-01-13] MEDS: MORPHINE SULFATE 2 MG/ML SYR IVP PRN ×4 (02:05→20:53)
[2023-01-13 05:23] LABS: BASOPHILS # (AUTO) 0.1 K/uL (0.00-0.22); EOSINOPHILS # (AUTO) 0.2 K/uL (0-0.4); HEMATOCRIT 39.5 % (36-48); LYMPHOCYTES # (AUTO) 2.2 K/uL (2.5-16.5); LYMPHOCYTES % (AUTO) 21.5 % (20.5-51.1); MEAN CORPUSCULAR HEMOGLOBIN 29 pg (27-31); MEAN CORPUSCULAR HGB CONC 33 g/dL (33-37); MEAN CORPUSCULAR VOLUME 87.2 fL (80-94); MONOCYTES # (AUTO) 0.7 K/uL (0.8-1.0); MONOCYTES % (AUTO) 6.6 % (1.7-9.3); NEUTROPHILS % (AUTO) 68.9 % (42.2-75.2); PLATELET COUNT (AUTO) 265 K/uL (140-450); RED BLOOD CELL COUNT(AUTO) 4.53 MIL/uL (4.20-5.40); RED CELL DISTRIBUTION WIDTH 14.1 % (11.6-13.7); WHITE BLOOD COUNT (AUTO) 10.2 K/uL (4.8-10.8)
[2023-01-13 06:02] LABS: ANION GAP 10.9 (8-16); CARBON DIOXIDE 28.9 mmol/L (21-32); CHLORIDE 103 mmol/L (98-107); CREATININE 0.7 mg/dL (0.6-1.3); GLUCOSE 110 mg/dL (74-106); POTASSIUM 3.8 mmol/L (3.5-5.1); SODIUM SERUM 139 mmol/L (136-145); UREA NITROGEN, BLOOD 23 mg/dL (7-18)
[2023-01-13] MEDS: DILTIAZEM 60 MG TAB PO SCH (06:21)
[2023-01-13] MEDS: HYDROcodone/APAP 10/325 MG 1 TAB TAB PO SCH ×2 (06:23→12:42)
[2023-01-13] MEDS ORDERED: POTASSIUM CHLORIDE 10 MEQ TABER PO PRN (06:52)
[2023-01-13] MEDS ORDERED: MAGNESIUM OXIDE 400 MG TAB PO PRN (06:52)
--- NOTE | 2023-01-13 07:15 | NUR ---
Report received from shiftman registry nurse NORMAN Harmon. Patient is AOx4 able to make needs and wants known. Right thumb 20G IV with no infiltration or redness noted dressing is intact currently saline locked. Lung sound are present upon auscultation with no adventitious lung sounds. Abdomen soft upon palpation. Purewick in place with urine is clear and yellow. Patient skin is intact except her lower feet bilateral scabs and scars noted. Patient , no acute distress, call light within reach, bed to lowest position for safety. Will continue to follow plan of care.
--- NOTE | 2023-01-13 08:39 | NUR ---
Dr. Dickson medical manager under Dr. Surehs rounded at patients bedside. No new orders received.
[2023-01-13] MEDS: RIVAROXABAN 10 MG TAB PO SCH (08:48)
[2023-01-13] MEDS: FUROSEMIDE 20 MG/2 ML VIAL IVP SCH (08:54)
[2023-01-13] MEDS: BACLOFEN 10 MG TAB PO SCH ×2 (08:54→20:41)
--- NOTE | 2023-01-13 08:54 | NUR ---
Patient stated to have pain of 9, per patient "pain starts at my hip and goes down to my toes" patients states to have throbbing pain that is intermittent. Will proceed to administer patients pain medication.
--- NOTE | 2023-01-13 09:54 | NUR ---
Reassessed patients pain per patient "I feel pain of 5 now medication worked on me." Provided nonpharmacological measures on patient such as distraction therapy. Will continue to follow plan of care.
--- NOTE | 2023-01-13 10:24 | NUR ---
Dr. Suresh called to get patients updates. No new orders received. stated patient can downgrade to Tele.
--- NOTE | 2023-01-13 11:12 | NUR ---
DC PLANNING A 77 YEAR OLD FEMALE PATIENT ADMITTED TO ICU FOR COMPLAINTS OF PALPITATION AND DIFFICULTY BREATHING .PATIENT HAS PAST MEDICAL HX OF A.FIB, ASTHMA AND FIBROMYALGIA.IN ER PATIENTS WAS ON A.FIB 102S-150S AND WAS GIVEN CARDIZEM DRIP BUT WAS ALREADY TRANSITIONED TO PO.ECHO PENDING. TROPONIN LEVEL ALSO HIGH. HR IN THE 70S NOW.CXR SHOWS CARDIOMEGALY WITH VASCULAR CONGESTION MOST LIKELY CHF.PATIENT ON LASIX 20MG IVP DAILY.CARDIO ON BOARD.DC PLAN- DC HOME WHEN PATIENT RESPONDS TO TX.CM TO FOLLOW.
--- NOTE | 2023-01-13 11:50 | NUR ---
Dr. Sierra rounded at patients bedside. Per MD wants patient to start on incentive spirometer and get physical therapy. stated she will put the orders in.
--- NOTE | 2023-01-13 11:50 | NUR ---
Dr. Sierra rounded at patients bedside. Made Dr. Sierra of patients wheezing per "it's a small wheeze" Will continue to follow plan of care. Addendum: 01/13/23 at 1402 by MARY BANEGAS RN Documented wrong patient.
--- NOTE | 2023-01-13 12:42 | NUR ---
Administered patients standing order of [place] for pain that is at an 8 per patient. Patient states pain is throbbing and radiates from the left hip to her toes on her left foot.
--- NOTE | 2023-01-13 13:42 | NUR ---
Reassessed patients pain level. patient stated to be at an 8 still. Will provide other interventions for patient.
[2023-01-13] MEDS ORDERED: HYDROcodone/APAP 10/325 MG 1 TAB TAB PO PRN (13:45)
--- NOTE | 2023-01-13 17:10 | NUR ---
Brand Recorder CHROME PLATER HELPER called and spoke to sonJeremi who stated his mom, Pt. resides with her niece and her sister.Pt. gets assistance from family. Demographics were confirmed. Pt. will return home upon discharge.
--- NOTE | 2023-01-13 17:35 | NUR ---
AWAKE AND ALERT VERBALLY RESPONSE TO DATA ENTRY TECHNICIAN VERBAL COMMANDS STABLE GOOD CHEST RISE SATURATION 88% ON ROOM AIR PLACED ON SUPPLEMENTAL OXYGEN AT 2 LPM VIA NASAL CANNULA TOLERATED INCENTIVE SPIROMETRY (IS) WELL WITHOUT ADVERSE REACTIONS NOTED ENCOURAGED PATIENT TO USE IS EVERY 1-2 HOURS WHILE AWAKE
--- NOTE | 2023-01-13 19:14 | NUR ---
1912 DID INCENTIVE SPIROMETER WITH PATIENT. PATIENT DID 5 BREATHS AT 500CC. PATIENT SOMEWHAT WEAK. ENCOURAGED PATIENT TO DO MORE WITH THE INCENTIVE SPIROMETER. PATIENT ON 2LNC. SATS 95%. NO SOB NOTED
--- NOTE | 2023-01-13 19:15 | NUR ---
Endorsed report to shift supervisor nurse NORMAN Raza for patient continuity of care. All questions answered.
--- NOTE | 2023-01-13 19:20 | NUR ---
RECEIVED REPORT FROM DAYSWIFT NURSE CHASITY. PT IS AOX3. PT ABLE TO VERBALIZE NEEDS AND FOLLOW COMMANDS. ON SEMI FOWLERS POSITION, SIDE RAILS UP X2. ON NC AT 2L/MIN. NOT IN DISTRESS. AFIB ON TOOL ROOM GEAR MACHINE OPERATOR. W/ R HAND IV PERIPHERAL IV ACCESS G#20 PATENT AND INTACT ON SALINE LOCK. ABDOMEN IS SOFT UPON PALPATION. W/ PUREWICK IN PLACE CONNECTED TO DRAIN, W/ ADEQUATE AMT OF YELLOW COLORED URINE. CALL LIGHT WITHIN REACH. SAFETY PRECAUTIONS IN PLACE. WILL CONTINUE TO MONITOR PT.
--- NOTE | 2023-01-13 20:45 | NUR ---
PT VERBALIZE OF PAIN ON L HIP AND LOWER EXTREMITY AND WITH A PAIN SCALE OF 7. FACIAL GRIMACE NOTED. COMFORT MEASURES PROVIDED. ASSIST IN REPOSITIONING. DIM LIGHTS.
--- NOTE | 2023-01-13 20:53 | NUR ---
PRN MEDICATION FOR PAIN GIVEN ORDERED. WILL REASSESS AND MONITOR PT.
--- NOTE | 2023-01-13 21:30 | NUR ---
ASSIST PT IN CHANGING UNDERPAD AND GOWN. PUREWICK REPLACED. ASSIST IN ORAL CARE.
--- NOTE | 2023-01-13 21:53 | NUR ---
PT IS ASLEEP. NO SIGNS OF PAIN NOTED.
--- NOTE | 2023-01-13 22:00 | NUR ---
PT IS ASLEEP AND NO SIGNS OF PAIN NOTED.
[2023-01-14] VITALS: PULSE 117
--- NOTE | 2023-01-14 02:00 | NUR ---
PT VERBALIZE OF PAIN ON LT HIP AND BACK. ASKS FOR NORCO MEDICINE, SHE SAID THAT SHE IS TAKING IT AT HOME ALSO. NURSE JUAN HOLDER. Addendum: 01/14/23 at 0219 by SHANEKA ALFARO RN DR. HOLDER REPLIED TO GIVE NORCO ONE TIME DOSE.
[2023-01-14] MEDS ORDERED: HYDROcodone/APAP 10/325 MG 1 TAB TAB PO ONE (02:05)
[2023-01-14 04:00] VITALS: BP 130/53; PULSE 103; RESP 15; TEMP 96.8
[2023-01-14 05:24] LABS: BASOPHILS # (AUTO) 0.1 K/uL (0.00-0.22); BASOPHILS % (AUTO) 0.5 % (0.0-2.0); EOSINOPHILS # (AUTO) 0.2 K/uL (0-0.4); EOSINOPHILS % (AUTO) 1.6 % (0.0-4.0); HEMATOCRIT 39.8 % (36-48); HEMOGLOBIN 13.1 g/dL (12.0-16.0); LYMPHOCYTES # (AUTO) 1.6 K/uL (2.5-16.5); LYMPHOCYTES % (AUTO) 13.9 % (20.5-51.1); MEAN CORPUSCULAR HEMOGLOBIN 29 pg (27-31); MEAN CORPUSCULAR HGB CONC 33 g/dL (33-37); MEAN CORPUSCULAR VOLUME 87.5 fL (80-94); MONOCYTES # (AUTO) 0.6 K/uL (0.8-1.0); MONOCYTES % (AUTO) 5.4 % (1.7-9.3); NEUTROPHILS % (AUTO) 78.6 % (42.2-75.2); PLATELET COUNT (AUTO) 282 K/uL (140-450); RED BLOOD CELL COUNT(AUTO) 4.55 MIL/uL (4.20-5.40); RED CELL DISTRIBUTION WIDTH 14.1 % (11.6-13.7); WHITE BLOOD COUNT (AUTO) 11.4 K/uL (4.8-10.8)
--- NOTE | 2023-01-14 05:50 | NUR ---
ASSIST PT FOR BOWEL MOVEMENT. ABLE TO PASS STOOL, CLEANED PT.
[2023-01-14 05:58] LABS: ANION GAP 11.9 (8-16); CARBON DIOXIDE 29.2 mmol/L (21-32); CHLORIDE 101 mmol/L (98-107); CREATININE 0.7 mg/dL (0.6-1.3); GLUCOSE 117 mg/dL (74-106); POTASSIUM 4.1 mmol/L (3.5-5.1); SODIUM SERUM 138 mmol/L (136-145); UREA NITROGEN, BLOOD 21 mg/dL (7-18)
[2023-01-14] MEDS: MORPHINE SULFATE 2 MG/ML SYR IVP PRN ×2 (06:17→12:49)
--- NOTE | 2023-01-14 06:17 | NUR ---
PT COMPLAINTS OF LEFT ARM PAIN. TRIED TO REPOSITION AND RELAXATION TECHNIQUE BY BREATHING EXERCISE STILL UNABLE TO TOLERATE PAIN. PRN MEDICATION WAS GIVEN MORPHINE SULFATE 2MG IVP PER MD ORDERED. FOR REASSESSMENT.
--- NOTE | 2023-01-14 07:00 | NUR ---
RECIVED REPOSRT FROM [facility] AIRCRAFT COMMUNICATORMOLDING MACHINE OPERATOR HELPER PT ADMIT FOR AFIB AND PALPITATION PT IS ALERT AND ORIENTED X4 ABLE TO MOVE ALL EXT WITHOUT DIFFICULTY. PT VS 98.8, 96% ROOM AIR, 17RR 122 HR BP 139/75. PT IS ON ROOM AIR, AFIB ON THE MONITOR HAS C/O OF CHEST PAIN PER PT 0600 12/23 RADIATING TO LEFT ARM WAS GIVEN MORPHINE ORDERED PER SHANEKAHector GUEVARA PT ONLY COMPLAINTS OF LEFT ARM PAIN DENIES CHEST PAIN AT THE TIME PT JUST FINISHED TO HAVE BOWEL MOVEMENT X1, PT HAS ROUNDED SOFT NONDISTENDED NON TENDER ABDOMEN, PT HAS URINARY INCONTINENCE WITH PURWICK PT HAS RIGHT FA IV PERIPHERAL INTACT PATENT., PT HAS OLD SURGICAL SCAR ON RIGHT KNEE. PT CALL LIGHT WITHIN REACH KEPT BED LOCKED AND LOW POSITION. DISCUSSED SAFETY PROTOCOL WILL MONITOR.
--- NOTE | 2023-01-14 07:03 | NUR ---
REASSESSED PT. AND NO S/SX OF PAIN NOTED. RESTING COMFORTABLY IN BED.
--- NOTE | 2023-01-14 07:20 | NUR ---
ENDORSED PT TO DAYSHIFT NURSE. ALL QUESTIONS ANSWERED.
--- NOTE | 2023-01-14 07:34 | NUR ---
CALLED DR. MOONEY AND BERNABE OSUNA FOR F/O CHEST PAIN PER PT STARTRED 1 HR AGO 12/23 RADIATING TO LEFT ARM MORPHINE WAS GIVEN NO SOB POTASSIUM LEVEL TODAY RELAYED 4.1 AND NO MAG LEVEL TODAY DR. KIDD GAVE NEW ORDERS FOR 12 LEAD EKG AND TROPONIN STAT.
[2023-01-14 08:00] VITALS: BP 139/75; PULSE 106; PULSE 122; PULSE 132; RESP 17; TEMP 97; TEMP 98.8; O2SAT 92; O2SAT 96
--- NOTE | 2023-01-14 08:08 | NUR ---
DR. VIVIANA LOU CAME IN AND ASSESS PT GET UPDATE CHART AND LAB REVIEW DONE MADE AWARE OF CHEST PAIN WITH NEW ORDER OF MAG LEVEL STAT. PT STARTED TO C/O OF SOB WHILE MD IS AT BEDSIDE PUT ON 2 LPM O2 NC MD ASSESS LUNG SOUND PER MD HEARD WHEEZING NEW ORDER FOR CXR STAT AND RT SERVICE FOR DUONEB BREATHING TREATMENT.
[2023-01-14] MEDS: BACLOFEN 10 MG TAB PO SCH (08:46)
--- NOTE | 2023-01-14 08:47 | NUR ---
Dr. Ariza (Dynamite Reclaimer) messaged about pt.'s chest pain earlier in previous shift. NEW ECG done this AM sent via text PICC and notified that labs will be drawn.
[2023-01-14] MEDS ORDERED: FUROSEMIDE 40 MG/4 ML VIAL IVP SCH (09:00)
[2023-01-14] MEDS ORDERED: ASPIRIN 81 MG TAB.CHEW PO SCH (09:00)
[2023-01-14] MEDS ORDERED: RIVAROXABAN 10 MG TAB PO SCH (09:00)
[2023-01-14] MEDS ORDERED: DILTIAZEM 60 MG TAB PO SCH (09:00)
[2023-01-14] MEDS ORDERED: DILTIAZEM 120 MG CAPER PO SCH ×2 (09:00)
[2023-01-14 09:25] VITALS: PULSE 115; RESP 22; O2SAT 95
[2023-01-14] MEDS ORDERED: ALBUTEROL SULFATE/IPRATROPIU 3 ML SOL IH ONE (09:28)
--- NOTE | 2023-01-14 09:40 | NUR ---
DR. MOONEY MADE AWARE OF TROPONIN LEVEL 186 PER NO NEW REC, OK TO D/C FROM MD STANDPOINT
--- NOTE | 2023-01-14 10:19 | NUR ---
DR. KIDD CALLED FOR CXR RESULT AND CLARIFY ORDER FOR DISCHARGE TODAY.;
[2023-01-14] MEDS ORDERED: ALBUTEROL SULFATE/IPRATROPIU 3 ML SOL IH SCH (11:00)
[2023-01-14] MEDS ORDERED: METH4TAB1 PO (11:13)
[2023-01-14] MEDS ORDERED: [UNRECOGNIZED DRUG - CODE] PO (11:16)
[2023-01-14] MEDS ORDERED: RIVA20TA PO (11:17)
[2023-01-14] MEDS ORDERED: AZIT250T4 PO (11:26)
[2023-01-14 12:00] VITALS: BP 140/70; PULSE 109; RESP 18; TEMP 96.6; O2SAT 94
--- NOTE | 2023-01-14 12:00 | NUR ---
DR. KIDD CAME IN AND ASSESS PT CHART AND LABS REVIEW DONE MADE AWARE OF ABG RESULT PER DOC OKAY TO BE DISCHARGE TODAY.
--- NOTE | 2023-01-14 12:02 | NUR ---
ABG WAS COLLECTED AND RESULTS WERE SENT TO DR KIDD FOR REVIEW.
[2023-01-14 12:24] VITALS: BP 140/70; PULSE 120; RESP 18; TEMP 96.6
[2023-01-14] MEDS ORDERED: MAG SULF 2000 MG/WATER PREMIX 50 ML IV SCH (13:00)
[2023-01-14] MEDS ORDERED: metroNIDAZOLE 500 MG/NS PREMIX 100 ML IV SCH (13:00)
--- NOTE | 2023-01-14 13:15 | NUR ---
CAME IN AND ASSESS PT MADE AWARE OF CHEST PAIN AND SOB DR. KIDD AWARE DR. MOONEY IS AWARE AND HAS ORDER FOR DISCHARGE AT HOME. NO NEW ORDER GIVEN
--- NOTE | 2023-01-14 15:55 | NUR ---
PT WAS DISCHARGED TODAY WITH [employer] GRANDDAUGHTER PICKED UP PT READ BACK DISCHARGE FOLLOW UP ORDER WITH PCP AND RETAIL OPERATIONS SPECIALIST WITHIN 1 WEEK AND NEW PRESCRIPTION ORDER MEDS TO BE PICKED UP AT [facility] ALL QUESTIONS ANSWERED VERBALIZED UNDERSTANDING VS 97HR BP 117./69 O2 SAT 91% ROOM AIR RR 18 NO DENIES SOB DENIES CHEST PAIN. ASSISTED VIA WHEELCHAIR TO THE PRIVATE VEHICLE WITH CHARGE NURSE YASH
== END 2023-01-14 15:55 | disposition home or self-care (01) | DRG 281 ==
LOC: MED 21:07 → MIC 23:26
PROVIDERS: ADMIT Family Medicine; ATTEND Family Medicine
DX: I48.91 Unspecified atrial fibrillation (principal); I21.A1 Myocardial infarction type 2; E44.1 Mild protein-calorie malnutrition; I82.512 Chronic embolism and thrombosis of left femoral vein; Z68.41 Body mass index [BMI] 40.0-44.9, adult; Z96.651 Presence of right artificial knee joint; J45.909 Unspecified asthma, uncomplicated; D72.829 Elevated white blood cell count, unspecified; I11.0 Hypertensive heart disease with heart failure; R74.01 Elevation of levels of liver transaminase levels; R79.89 Other specified abnormal findings of blood chemistry; E87.6 Hypokalemia; F43.9 Reaction to severe stress, unspecified; I50.9 Heart failure, unspecified; Z79.899 Other long term (current) drug therapy; Z79.82 Long term (current) use of aspirin; Z90.49 Acquired absence of other specified parts of digestive tract; Z88.8 Allergy status to other drugs, medicaments and biological substances; Z90.710 Acquired absence of both cervix and uterus
CPT/HCPCS: 36415; 36600; 71045; 80048; 80053; 82803; 83735; 83880; 84100; 84484; 85025; 85610; 85730; 87081; 93005; 93970; 94010; 94640; 96372; 96374; 99285; J1650; J1940; J2270; J3475; J3490; J7060; Q0092

== ENCOUNTER 2023-02-14 09:14 | Inpatient (IN) | payer BC ==
[~2023-02-14] VITALS: Ht 152.4 cm; Wt 89.8 kg
[~2023-02-14 09:14] MED LIST changes: -ACET-1182 PO; -ALBU3SOL83 IH; -APIX2.5 PO; -ASPI-1822 PO; -FURO40TA9 PO; -HYDR-5191 PO; +LOSA-269 PO; -LOSA25TA1 PO; +METH4TAB1 PO; -METO25TA PO; -NORC10 PO; +RIVA20TA PO; +[UNRECOGNIZED DRUG - CODE] PO
[2023-02-14] MEDS ORDERED: KETOROLAC 30 MG/ML VIAL IVP ONE (09:25)
[2023-02-14 09:32] VITALS: BP 132/77; PULSE 141; RESP 12; TEMP 98; O2SAT 98
[2023-02-14 09:56] LABS: BASOPHILS % (AUTO) 0.5 % (0.0-2.0); EOSINOPHILS # (AUTO) 0.2 K/uL (0-0.4); EOSINOPHILS % (AUTO) 3.1 % (0.0-4.0); HEMOGLOBIN 12.4 g/dL (12.0-16.0); LYMPHOCYTES # (AUTO) 1.3 K/uL (2.5-16.5); LYMPHOCYTES % (AUTO) 17.6 % (20.5-51.1); MEAN CORPUSCULAR HEMOGLOBIN 29 pg (27-31); MEAN CORPUSCULAR HGB CONC 33 g/dL (33-37); MEAN CORPUSCULAR VOLUME 87.7 fL (80-94); MONOCYTES # (AUTO) 0.5 K/uL (0.8-1.0); MONOCYTES % (AUTO) 6.8 % (1.7-9.3); NEUTROPHILS # (AUTO) 5.5 K/uL (1.8-7.7); PLATELET COUNT (AUTO) 268 K/uL (140-450); RED BLOOD CELL COUNT(AUTO) 4.33 MIL/uL (4.20-5.40); RED CELL DISTRIBUTION WIDTH 14.3 % (11.6-13.7); WHITE BLOOD COUNT (AUTO) 7.6 K/uL (4.8-10.8)
[2023-02-14 10:08] LABS: ALANINE AMINOTRANSFERASE 295 U/L (12-78); ALBUMIN 3.4 g/dL (3.4-5.0); ALKALINE PHOSPHATASE 265 U/L (50-136); ANION GAP 5.5 (8-16); ASPARTATE AMINOTRANSFERASE 380 U/L (15-37); CALCIUM 8.8 mg/dL (8.5-10.1); CARBON DIOXIDE 36.2 mmol/L (21-32); CHLORIDE 97 mmol/L (98-107); CREATININE 0.9 mg/dL (0.6-1.3); GLUCOSE 131 mg/dL (74-106); POTASSIUM 3.7 mmol/L (3.5-5.1); SODIUM SERUM 135 mmol/L (136-145); TOTAL BILIRUBIN 1.3 mg/dL (0.0-1.0); TOTAL PROTEIN, SERUM 7.4 g/dL (6.4-8.2); UREA NITROGEN, BLOOD 23 mg/dL (7-18)
[2023-02-14] MEDS ORDERED: DILTIAZEM 25 MG/5 ML VIAL IVP ONE (11:05)
[2023-02-14] MEDS ORDERED: ASPIRIN 325 MG TAB PO ONE (14:35)
[2023-02-14] MEDS ORDERED: MORPHINE SULFATE 4 MG/ML SYR IVP ONE (14:35)
[2023-02-14] MEDS ORDERED: NACL 0.9% 1,000 ML IV ONE (19:35)
[2023-02-14 21:10] VITALS: PULSE 125; RESP 20; O2SAT 96
[2023-02-14 21:14] VITALS: PULSE 108
[2023-02-14 21:20] VITALS: BP 135/85; PULSE 125; RESP 20; TEMP 98.8; O2SAT 96
[2023-02-14] MEDS ORDERED: HYDROcodone/APAP 5/325 MG 1 TAB TAB PO PRN (22:25)
[2023-02-14 22:44] VITALS: O2SAT 95
[2023-02-14] MEDS: MORPHINE SULFATE 2 MG/ML SYR IVP PRN (22:46)
[2023-02-14 23:56] VITALS: PULSE 98
[2023-02-15] VITALS: BP 122/60; PULSE 78; RESP 20; TEMP 98.5; O2SAT 95
[2023-02-15 03:55] VITALS: PULSE 114
[2023-02-15 04:00] VITALS: BP 128/60; PULSE 87; RESP 20; TEMP 98.6; O2SAT 95
[2023-02-15 06:20] LABS: ANION GAP 5.9 (8-16); CALCIUM 8.5 mg/dL (8.5-10.1); CARBON DIOXIDE 35.5 mmol/L (21-32); CHLORIDE 101 mmol/L (98-107); CREATININE 0.7 mg/dL (0.6-1.3); GLUCOSE 100 mg/dL (74-106); POTASSIUM 3.4 mmol/L (3.5-5.1); SODIUM SERUM 139 mmol/L (136-145); UREA NITROGEN, BLOOD 16 mg/dL (7-18)
[2023-02-15] MEDS: MORPHINE SULFATE 2 MG/ML SYR IVP PRN (06:26)
[2023-02-15 06:47] LABS: BASOPHILS # (AUTO) 0.1 K/uL (0.00-0.22); BASOPHILS % (AUTO) 0.7 % (0.0-2.0); EOSINOPHILS # (AUTO) 0.4 K/uL (0-0.4); EOSINOPHILS % (AUTO) 4.2 % (0.0-4.0); HEMOGLOBIN 11.8 g/dL (12.0-16.0); LYMPHOCYTES # (AUTO) 1.1 K/uL (2.5-16.5); MEAN CORPUSCULAR HEMOGLOBIN 29 pg (27-31); MEAN CORPUSCULAR HGB CONC 33 g/dL (33-37); MONOCYTES # (AUTO) 0.4 K/uL (0.8-1.0); MONOCYTES % (AUTO) 4.4 % (1.7-9.3); NEUTROPHILS # (AUTO) 7.2 K/uL (1.8-7.7); NEUTROPHILS % (AUTO) 78.7 % (42.2-75.2); PLATELET COUNT (AUTO) 249 K/uL (140-450); RED CELL DISTRIBUTION WIDTH 14.6 % (11.6-13.7); WHITE BLOOD COUNT (AUTO) 9.2 K/uL (4.8-10.8)
[2023-02-15 07:50] VITALS: O2SAT 90
[2023-02-15] MEDS ORDERED: POTASSIUM CHLORIDE 10 MEQ TABER PO PRN (09:45)
[2023-02-15] MEDS ORDERED: ONDANSETRON 4 MG/2 ML VIAL IM/IVP PRN (09:45)
[2023-02-15] MEDS ORDERED: NACL 0.9% 1,000 ML IV SCH (09:45)
[2023-02-15] MEDS ORDERED: ACETAMINOPHEN 325 MG TAB PO PRN (09:45)
[2023-02-15] MEDS ORDERED: ZOLPIDEM 5 MG TAB PO PRN (09:45)
[2023-02-15] MEDS ORDERED: DOCUSATE SODIUM 100 MG GELCAP PO PRN (09:45)
[2023-02-15] MEDS ORDERED: guaiFENesin DM 200/20 MG-10 ML 10 ML UDC PO PRN (09:45)
[2023-02-15] MEDS ORDERED: RIVAROXABAN 10 MG TAB PO SCH (09:50)
[2023-02-15 10:00] VITALS: O2SAT 98
[2023-02-15 10:14] LABS: INR 1.17 (0.8-1.2); PARTIAL THROMBOPLASTIN TIME 32.2 secs (22-35.6); PROTHROMBIN TIME 12.2 secs (10.8-13.4)
[2023-02-15 10:27] LABS: CHOL/HDL RATIO 2.7 (1-4.5); FREE T4 (FREE THYROXINE) 1.12 ng/dL (0.76-1.46); MAGNESIUM 2.1 mg/dL (1.8-2.4); PHOSPHORUS 3.9 mg/dL (2.5-4.9); THYROID STIMULATING HORMONE 1.45 uIU/mL (0.34-3.74)
[2023-02-16] MEDS ORDERED: DILTIAZEM 120 MG CAPER PO SCH (09:00)
[2023-02-16] MEDS ORDERED: PANTOPRAZOLE 40 MG TABEC PO SCH (09:00)
[2023-02-16] MEDS ORDERED: DILTIAZEM HCL 240 MG PO SCH (09:00)
[2023-02-16] MEDS ORDERED: LOSARTAN 25 MG TAB PO SCH (09:00)
[2023-02-17 07:07] LABS: T4 (THYROXINE) 8.7 ug/dL (4.5-12.0)
[2023-02-17 13:29] LABS: HEMOGLOBIN A1C 5.9 % (4.8-5.6)
== END 2023-02-15 12:18 | disposition left against medical advice (07) | DRG 280 ==
LOC: MED 09:14 → MMU 19:40 → MTU 20:31
DX: I48.91 Unspecified atrial fibrillation (principal); I21.A1 Myocardial infarction type 2; I50.43 Acute on chronic combined systolic (congestive) and diastolic (congestive) heart failure; E87.1 Hypo-osmolality and hyponatremia; I11.0 Hypertensive heart disease with heart failure; E87.6 Hypokalemia; R74.01 Elevation of levels of liver transaminase levels; Z86.718 Personal history of other venous thrombosis and embolism; Z79.82 Long term (current) use of aspirin; Z79.899 Other long term (current) drug therapy; Z79.01 Long term (current) use of anticoagulants; Z88.8 Allergy status to other drugs, medicaments and biological substances
CPT/HCPCS: 36415; 71045; 80048; 80053; 82150; 83036; 83690; 83735; 83880; 84100; 84436; 84439; 84443; 84479; 84484; 85025; 85610; 85730; 87081; 96361; 96374; 96375; 99291; J1885; J2270; J3490; Q0092